=== PATIENT | male | born 1970 | race Caucasian/White ===

== ENCOUNTER 2022-12-22 11:03 | Day surgery (SDC) | payer OTHER ==
[2022-12-22] MEDS ORDERED: PROPOFOL 200 MG/20 ML VIAL ONE (13:15)
[2022-12-22] MEDS ORDERED: Ondansetron PF 4 MG/2 ML Vial ONE (13:15)
[2022-12-22] MEDS ORDERED: Dexamethasone 20 MG/5 ML VIAL ONE (13:15)
[2022-12-22] MEDS ORDERED: Lidocaine 1% PF 5 ML VIAL ONE (13:15)
== END 2022-12-25 15:10 | disposition home or self-care (01) ==
LOC: SJX 11:03 → EDSTATUS 01-05 12:00
PROVIDERS: ATTEND Nurse Practitioner Family
DX: M47.27 Other spondylosis with radiculopathy, lumbosacral region (principal); M48.061 Spinal stenosis, lumbar region without neurogenic claudication; Q76.49 Other congenital malformations of spine, not associated with scoliosis; M48.07 Spinal stenosis, lumbosacral region; M51.17 Intervertebral disc disorders with radiculopathy, lumbosacral region; M51.16 Intervertebral disc disorders with radiculopathy, lumbar region; I10 Essential (primary) hypertension; Z79.2 Long term (current) use of antibiotics; Z79.52 Long term (current) use of systemic steroids; Z79.621 Long term (current) use of calcineurin inhibitor; Z79.899 Other long term (current) drug therapy; Z94.0 Kidney transplant status
CPT/HCPCS: 72148; J1100; J2405; J2704

== ENCOUNTER → 2023-01-12 | Day surgery (SDC) | payer OTHER ==
[2023-01-11 12:35] VITALS: BMI 30.2
[~2023-01-12] MED LIST: Lidocaine 1% PF 5 ML VIAL ONE; PHENYLEPHRINE-NS 100 MCG/ML 10 ML SYRINGE ONE; PROPOFOL 200 MG/20 ML VIAL ONE
== END | disposition home or self-care (01) ==
LOC: EDSTATUS 13:00 → MRI 13:55
PROVIDERS: ATTEND Surgery
DX: Q06.8 Other specified congenital malformations of spinal cord (principal); M47.812 Spondylosis without myelopathy or radiculopathy, cervical region; M48.02 Spinal stenosis, cervical region; M50.31 Other cervical disc degeneration, high cervical region; Z79.52 Long term (current) use of systemic steroids; Z79.621 Long term (current) use of calcineurin inhibitor; Z79.899 Other long term (current) drug therapy; Z94.0 Kidney transplant status
CPT/HCPCS: 72141; 72146; J2704

== ENCOUNTER 2023-09-21 09:28 | Emergency (ER) | payer OTHER ==
[2023-09-21 10:53] LABS: #Eosinphils 0.1 thou/uL (0.0-0.7); #Monocytes 0.7 thou/uL (0.11-0.59); #Neutrophils 5.6 thou/uL (1.40-6.50); %Basophils 0.5 % (0.0-1.0); %Eosinophils 1.1 % (0.0-10.0); %Lymphocytes 18.7 % (21.0-51.0); %Monocytes 8.2 % (0.0-10.0); %Neutrophils 71.1 % (42.0-75.0); Hematocrit 43.6 % (42.0-52.0); Mean Corpuscular HGB CONC 34.4 g/dL (32.0-36.0); Mean Corpuscular Hemoglobin 31.3 pg (27.0-31.0); Mean Corpuscular Volume 90.8 fl (78.0-98.0); Mean Platelet Volume 10.5 fL (7.4-10.4); Platelet Count 253 10x3/uL (130-400); RBC Distribution Width 12.8 % (11.5-14.5); White Blood Cell (WBC) Count 7.9 10x3/uL (4.8-10.8)
[2023-09-21 11:27] LABS: ALT (SGPT) 34 U/L (8-55); AST (SGOT) 32 U/L (5-34); Albumin 4.4 g/dL (3.5-5.0); Alkaline Phosphatase 81 U/L (40-110); Anion Gap 15 mmol/L (10-20); BUN (Urea Nitrogen) 23 mg/dL (8.4-25.7); Bilirubin, Total 0.6 mg/dL (0.2-1.2); Calc. Creatinine Clearance 0 mL/min (70-130); Calcium 9.9 mg/dL (7.8-10.44); Carbon Dioxide 23 mmol/L (22-29); Chloride 104 mmol/L (98-107); Estimated GFR 91; Globulin 3.3 g/dL (2.4-3.5); Glucose 105 mg/dL (70-105); Potassium 3.9 mmol/L (3.5-5.1); Protein, Total 7.7 g/dL (6.0-8.3); Sodium 138 mmol/L (136-145)
== END 2023-09-21 14:00 | disposition home or self-care (01) ==
LOC: ERS 09:28
DX: G89.29 Other chronic pain (principal); M79.651 Pain in right thigh; R53.1 Weakness; Q05.9 Spina bifida, unspecified; I12.9 Hypertensive chronic kidney disease with stage 1 through stage 4 chronic kidney disease, or unspecified chronic kidney disease; N18.9 Chronic kidney disease, unspecified; K21.9 Gastro-esophageal reflux disease without esophagitis; Z79.899 Other long term (current) drug therapy
CPT/HCPCS: 36415; 80053; 85025; 99284

== ENCOUNTER 2023-10-25 10:55 | Inpatient (IN) | payer OTHER, SELFPAY ==
[2023-10-25 13:17] LABS: #Eosinphils 0.1 thou/uL (0.0-0.7); #Monocytes 0.8 thou/uL (0.11-0.59); #Neutrophils 10.2 thou/uL (1.40-6.50); %Basophils 0.3 % (0.0-1.0); %Eosinophils 0.7 % (0.0-10.0); %Lymphocytes 7.8 % (21.0-51.0); %Monocytes 6.4 % (0.0-10.0); %Neutrophils 84.5 % (42.0-75.0); Hematocrit 46.1 % (42.0-52.0); Hemoglobin 15.6 g/dL (14.0-18.0); Mean Corpuscular HGB CONC 33.8 g/dL (32.0-36.0); Mean Corpuscular Hemoglobin 30.2 pg (27.0-31.0); Mean Corpuscular Volume 89.2 fl (78.0-98.0); Mean Platelet Volume 9.7 fL (7.4-10.4); Platelet Count 375 10x3/uL (130-400); RBC Distribution Width 12.1 % (11.5-14.5); Red Blood Cell (RBC) Count 5.17 mill/uL (4.70-6.10); White Blood Cell (WBC) Count 12.1 10x3/uL (4.8-10.8)
[2023-10-25] MEDS ORDERED: LORazepam 2 MG/ML SYR.(CARPUJECT) ONE ×2 (13:36→14:16)
[2023-10-25 13:37] LABS: INR-International Normal Ratio 1.9; PTT 46.7 sec (22.9-36.1); Prothrombin Time 22.8 sec (12.0-14.7)
[2023-10-25 13:41] LABS: ALT (SGPT) 40 U/L (8-55); AST (SGOT) 33 U/L (5-34); Albumin 4.3 g/dL (3.5-5.0); Alkaline Phosphatase 117 U/L (40-110); Anion Gap 14 mmol/L (10-20); BUN (Urea Nitrogen) 20 mg/dL (8.4-25.7); Bilirubin, Total 1.1 mg/dL (0.2-1.2); CK (CPK) 228 U/L (30-200); Calc. Creatinine Clearance 0 mL/min (70-130); Calcium 10.2 mg/dL (7.8-10.44); Carbon Dioxide 24 mmol/L (22-29); Chloride 101 mmol/L (98-107); Estimated GFR 74; Glucose 128 mg/dL (70-105); Magnesium 1.7 mg/dL (1.6-2.6); Potassium 3.9 mmol/L (3.5-5.1); Protein, Total 8.3 g/dL (6.0-8.3); Sodium 135 mmol/L (136-145)
[2023-10-25] MEDS ORDERED: HYDROcodone/Acetaminophen 7.5/325 mg Tablet PO PRN (16:38)
[2023-10-25 17:46] VITALS: BMI 29.2
[2023-10-25] MEDS: Trospium 20 MG TAB PO SCH ×2 (21:01→23:02)
[2023-10-25] MEDS: Carvedilol 6.25 MG TAB PO SCH (21:01)
[2023-10-25] MEDS: Mycophenolate DR 180 MG TAB PO SCH (21:02)
[2023-10-25] MEDS: Tacrolimus 1 MG CAP PO SCH (21:02)
[2023-10-25] MEDS: traMADol HCl 50 MG TAB PO PRN (23:14)
[2023-10-25] MEDS: ALPRAZolam 0.25 MG TAB PO PRN (23:15)
[2023-10-26] MEDS: Tacrolimus 1 MG CAP PO SCH ×2 (09:14→20:58)
[2023-10-26] MEDS: Mycophenolate DR 180 MG TAB PO SCH ×3 (09:14→20:58)
[2023-10-26] MEDS: Carvedilol 6.25 MG TAB PO SCH ×2 (09:15→20:57)
[2023-10-26] MEDS: TROSPIUM 60 MG PO SCH (09:15)
[2023-10-26] MEDS: predniSONE 5 MG TAB PO SCH (09:15)
[2023-10-26] MEDS ORDERED: Midazolam HCl 2 mg/2 ml Vial ONE (12:12)
[2023-10-26] MEDS ORDERED: PROPOFOL 200 MG/20 ML VIAL ONE (12:20)
[2023-10-26] MEDS ORDERED: Lidocaine 1% PF 5 ML VIAL ONE (12:20)
[2023-10-26] MEDS: Rivaroxaban 15 MG TAB PO SCH (15:49)
[2023-10-26] MEDS ORDERED: Rivaroxaban 15 MG TAB PO SCH (17:00)
[2023-10-26] MEDS: ALPRAZolam 0.25 MG TAB PO PRN (21:04)
[2023-10-27] MEDS: Tacrolimus 1 MG CAP PO SCH ×2 (08:57→20:51)
[2023-10-27] MEDS: Mycophenolate DR 180 MG TAB PO SCH ×3 (08:58→20:51)
[2023-10-27] MEDS: Carvedilol 6.25 MG TAB PO SCH ×2 (08:58→20:51)
[2023-10-27] MEDS: TROSPIUM 60 MG PO SCH (08:58)
[2023-10-27] MEDS: predniSONE 5 MG TAB PO SCH (08:58)
[2023-10-27] MEDS: traMADol HCl 50 MG TAB PO PRN (09:02)
[2023-10-27] MEDS: Rivaroxaban 15 MG TAB PO SCH ×3 (09:06→16:08)
[2023-10-27] MEDS: ALPRAZolam 0.25 MG TAB PO PRN (23:06)
[2023-10-28] MEDS: Melatonin 3 MG TAB PO PRN ×2 (00:42→22:05)
[2023-10-28] MEDS: Tacrolimus 1 MG CAP PO SCH ×2 (07:42→20:00)
[2023-10-28] MEDS: Rivaroxaban 15 MG TAB PO SCH ×2 (07:43→16:37)
[2023-10-28] MEDS: Carvedilol 6.25 MG TAB PO SCH ×2 (07:43→20:00)
[2023-10-28] MEDS: predniSONE 5 MG TAB PO SCH (07:43)
[2023-10-28] MEDS: Mycophenolate DR 180 MG TAB PO SCH ×3 (07:43→20:00)
[2023-10-28] MEDS: TROSPIUM 60 MG PO SCH (07:44)
[2023-10-28] MEDS: ALPRAZolam 0.25 MG TAB PO PRN (14:01)
[2023-10-28] MEDS ORDERED: Calcium Carbonate 500 MG ChewTAB PO PRN (22:10)
[2023-10-29] MEDS: Carvedilol 6.25 MG TAB PO SCH ×2 (08:15→21:05)
[2023-10-29] MEDS: predniSONE 5 MG TAB PO SCH (08:15)
[2023-10-29] MEDS: Rivaroxaban 15 MG TAB PO SCH ×2 (08:16→17:05)
[2023-10-29] MEDS: Mycophenolate DR 180 MG TAB PO SCH ×3 (08:16→21:05)
[2023-10-29] MEDS: Tacrolimus 1 MG CAP PO SCH ×2 (08:16→21:05)
[2023-10-29] MEDS: TROSPIUM 60 MG PO SCH (08:20)
[2023-10-29] MEDS: Melatonin 3 MG TAB PO PRN (21:14)
[2023-10-30 06:10] LABS: #Eosinphils 0.1 thou/uL (0.0-0.7); #Monocytes 0.7 thou/uL (0.11-0.59); #Neutrophils 4.9 thou/uL (1.40-6.50); %Basophils 0.5 % (0.0-1.0); %Eosinophils 1.6 % (0.0-10.0); %Lymphocytes 22.9 % (21.0-51.0); %Monocytes 9.9 % (0.0-10.0); %Neutrophils 64.8 % (42.0-75.0); Hematocrit 42.8 % (42.0-52.0); Hemoglobin 14.5 g/dL (14.0-18.0); Mean Corpuscular HGB CONC 33.9 g/dL (32.0-36.0); Mean Corpuscular Hemoglobin 30.2 pg (27.0-31.0); Mean Corpuscular Volume 89.2 fl (78.0-98.0); Platelet Count 295 10x3/uL (130-400); RBC Distribution Width 11.9 % (11.5-14.5); White Blood Cell (WBC) Count 7.5 10x3/uL (4.8-10.8)
[2023-10-30 06:46] LABS: Anion Gap 17 mmol/L (10-20); BUN (Urea Nitrogen) 24 mg/dL (8.4-25.7); Calc. Creatinine Clearance 88 mL/min (70-130); Calcium 9.6 mg/dL (7.8-10.44); Carbon Dioxide 20 mmol/L (22-29); Chloride 105 mmol/L (98-107); Estimated GFR 70; Glucose 118 mg/dL (70-105); Potassium 4.1 mmol/L (3.5-5.1); Sodium 138 mmol/L (136-145)
[2023-10-30] MEDS: Tacrolimus 1 MG CAP PO SCH ×2 (07:59→20:15)
[2023-10-30] MEDS: Mycophenolate DR 180 MG TAB PO SCH ×3 (07:59→20:15)
[2023-10-30] MEDS: Carvedilol 6.25 MG TAB PO SCH ×2 (07:59→20:15)
[2023-10-30] MEDS: Rivaroxaban 15 MG TAB PO SCH ×2 (08:00→17:37)
[2023-10-30] MEDS: predniSONE 5 MG TAB PO SCH (08:00)
[2023-10-30] MEDS: TROSPIUM 60 MG PO SCH (08:00)
[2023-10-30] MEDS: Melatonin 3 MG TAB PO PRN (20:15)
[2023-10-30] MEDS: ALPRAZolam 0.25 MG TAB PO PRN (20:15)
[2023-10-31] MEDS: Carvedilol 6.25 MG TAB PO SCH (08:10)
[2023-10-31] MEDS: Rivaroxaban 15 MG TAB PO SCH (08:10)
[2023-10-31] MEDS: predniSONE 5 MG TAB PO SCH (08:10)
[2023-10-31] MEDS: Mycophenolate DR 180 MG TAB PO SCH (08:11)
[2023-10-31] MEDS: TROSPIUM 60 MG PO SCH (08:11)
[2023-10-31 08:38] VITALS: BP 121/85; TEMP 97.7
[2023-10-31] MEDS: Tacrolimus 1 MG CAP PO SCH (09:42)
[2023-11-05] MEDS ORDERED: Rivaroxaban 10 MG TAB PO SCH (17:00)
== END 2023-10-31 15:13 | disposition home or self-care (01) | DRG 300 ==
LOC: ERS 10:55 → T4-B 15:54 → OBSVTOIN 10-26 17:38
PROVIDERS: ADMIT Internal Medicine; ATTEND Family Medicine
DX: I82.402 Acute embolism and thrombosis of unspecified deep veins of left lower extremity (principal); Z94.0 Kidney transplant status; M79.89 Other specified soft tissue disorders; I10 Essential (primary) hypertension; R33.9 Retention of urine, unspecified; R29.898 Other symptoms and signs involving the musculoskeletal system; Z79.899 Other long term (current) drug therapy; Z79.01 Long term (current) use of anticoagulants
CPT/HCPCS: 36415; 70450; 72157; 72158; 80048; 80053; 82550; 83735; 85025; 85610; 85730; 93970; 96374; 96376; J2060; J2250; J2704; J7507; J7512; J7518

== ENCOUNTER 2023-12-28 10:02 | Inpatient (IN) | payer BC ==
[2023-12-28 11:09] LABS: #Basophils 0.1 thou/uL (0.0-0.2); #Eosinphils 0.1 thou/uL (0.0-0.7); #Monocytes 0.8 thou/uL (0.11-0.59); #Neutrophils 8.8 thou/uL (1.40-6.50); %Basophils 0.5 % (0.0-1.0); %Eosinophils 1.3 % (0.0-10.0); %Lymphocytes 9.5 % (21.0-51.0); %Monocytes 7.5 % (0.0-10.0); %Neutrophils 80.8 % (42.0-75.0); Hematocrit 43.2 % (42.0-52.0); Hemoglobin 14.5 g/dL (14.0-18.0); Mean Corpuscular HGB CONC 33.6 g/dL (32.0-36.0); Mean Corpuscular Hemoglobin 29.2 pg (27.0-31.0); Mean Corpuscular Volume 87.1 fl (78.0-98.0); Mean Platelet Volume 10.2 fL (7.4-10.4); Platelet Count 311 10x3/uL (130-400); Red Blood Cell (RBC) Count 4.96 mill/uL (4.70-6.10); White Blood Cell (WBC) Count 10.9 10x3/uL (4.8-10.8)
[2023-12-28 11:31] LABS: ALT (SGPT) 33 U/L (8-55); AST (SGOT) 31 U/L (5-34); Albumin 4.3 g/dL (3.5-5.0); Alkaline Phosphatase 117 U/L (40-110); Anion Gap 14 mmol/L (10-20); BUN (Urea Nitrogen) 21 mg/dL (8.4-25.7); Bilirubin, Total 1.2 mg/dL (0.2-1.2); Calc. Creatinine Clearance 0 mL/min (70-130); Calcium 10.1 mg/dL (7.8-10.44); Carbon Dioxide 23 mmol/L (22-29); Chloride 103 mmol/L (98-107); Estimated GFR 52; Globulin 4.1 g/dL (2.4-3.5); Glucose 101 mg/dL (70-105); Protein, Total 8.4 g/dL (6.0-8.3); Sodium 136 mmol/L (136-145)
[2023-12-28 11:41] LABS: Clarity Cloudy (Clear); Specific Gravity, Urine 1.025 (1.005-1.030); pH, Urine 6.5 (5.0-9.0)
[2023-12-28 11:42] LABS: Bilirubin Unable to Interpret (Negative); Blood, Urine Unable to Interpret (Negative); Glucose, Urine (Dipstick) Unable to Interpret mg/dL (Negative); Ketone, Urine Unable to Interpret mg/dL (Negative); Leukocyte Unable to Interpret (Negative); Nitrite Unable to Interpret (Negative); Protein, Urine (Dipstick) Unable to Interpret mg/dL (Neg-Trace); Urobilinogen UNABLE TO INTERPRET mg/dL (Less than 2)
[2023-12-28 11:44] LABS: Bacteria/HPF 2+ HPF (None Seen); CAUTI Indications for Culture Pelvic or flank pain; RBC/HPF Greater than 50 HPF (0-3); Squamous Epithelial None Seen HPF (0-3); Transitional Epithelial 0-3 HPF (None Seen)
[2023-12-28 11:45] LABS: Urine Culture Reflex Yes Yes
[2023-12-28] MEDS ORDERED: Sodium Chloride 0.9% 100 ML ONE (12:26)
[2023-12-28] MEDS ORDERED: cefTRIAXone (ROCEPHIN) 2 GM VIAL ONE (12:26)
[2023-12-28] MEDS ORDERED: Ondansetron PF 4 MG/2 ML Vial IVP PRN (13:05)
[2023-12-28] MEDS ORDERED: Vancomycin (BATCH) 2 GM in Premix 1 BAG IVPB SCH (14:15)
[2023-12-28] MEDS: Sodium Chloride 0.9% 1,000 ML IV SCH (15:32)
[2023-12-28 15:46] VITALS: BMI 26.6
[2023-12-28] MEDS: Acetaminophen 325 MG TAB PO PRN (22:39)
[2023-12-29] MEDS: Sodium Chloride 0.9% 1,000 ML IV SCH ×3 (00:04→18:07)
[2023-12-29] MEDS: Melatonin 3 MG TAB PO PRN ×2 (02:46→21:16)
[2023-12-29] MEDS ORDERED: Cyclobenzaprine 10 MG TAB PO SCH ×2 (04:45→20:30)
[2023-12-29 06:25] LABS: #Basophils 0.1 thou/uL (0.0-0.2); #Eosinphils 0.1 thou/uL (0.0-0.7); #Monocytes 0.9 thou/uL (0.11-0.59); #Neutrophils 7.2 thou/uL (1.40-6.50); %Basophils 0.6 % (0.0-1.0); %Eosinophils 1.3 % (0.0-10.0); %Lymphocytes 10.4 % (21.0-51.0); %Neutrophils 77.4 % (42.0-75.0); Hematocrit 39.2 % (42.0-52.0); Mean Corpuscular HGB CONC 33.2 g/dL (32.0-36.0); Mean Corpuscular Hemoglobin 29.1 pg (27.0-31.0); Mean Corpuscular Volume 87.7 fl (78.0-98.0); Mean Platelet Volume 10.2 fL (7.4-10.4); Platelet Count 274 10x3/uL (130-400); RBC Distribution Width 12.9 % (11.5-14.5); Red Blood Cell (RBC) Count 4.47 mill/uL (4.70-6.10); White Blood Cell (WBC) Count 9.3 10x3/uL (4.8-10.8)
[2023-12-29] MEDS: Tacrolimus 1 MG CAP PO SCH ×2 (08:52→21:13)
[2023-12-29] MEDS: predniSONE 5 MG TAB PO SCH (08:52)
[2023-12-29] MEDS: Mycophenolate DR 180 MG TAB PO SCH ×2 (08:52→21:14)
[2023-12-29] MEDS ORDERED: Loperamide HCl 2 MG CAP PO PRN (12:07)
[2023-12-29] MEDS ORDERED: Floranex 1 GM Packet PO SCH (12:15)
[2023-12-29] MEDS: cefTRIAXone\\ROCEPHIN 1 GM in Sodium Chloride 0.9% 100 ML IVPB SCH (12:50)
[2023-12-29] MEDS: Acetaminophen 325 MG TAB PO PRN (21:16)
[2023-12-30] MEDS: Acetaminophen 325 MG TAB PO PRN (02:00)
[2023-12-30 05:51] LABS: #Basophils 0.1 thou/uL (0.0-0.2); #Eosinphils 0.2 thou/uL (0.0-0.7); #Monocytes 0.7 thou/uL (0.11-0.59); #Neutrophils 3.6 thou/uL (1.40-6.50); %Basophils 0.8 % (0.0-1.0); %Eosinophils 2.7 % (0.0-10.0); %Monocytes 11.6 % (0.0-10.0); %Neutrophils 58.4 % (42.0-75.0); Hematocrit 38.2 % (42.0-52.0); Hemoglobin 12.6 g/dL (14.0-18.0); Mean Corpuscular Hemoglobin 29.5 pg (27.0-31.0); Mean Corpuscular Volume 89.5 fl (78.0-98.0); Mean Platelet Volume 10.4 fL (7.4-10.4); Platelet Count 249 10x3/uL (130-400); Red Blood Cell (RBC) Count 4.27 mill/uL (4.70-6.10); White Blood Cell (WBC) Count 6.2 10x3/uL (4.8-10.8)
[2023-12-30 06:23] LABS: Anion Gap 9 mmol/L (10-20); BUN (Urea Nitrogen) 17 mg/dL (8.4-25.7); Calc. Creatinine Clearance 90 mL/min (70-130); Carbon Dioxide 24 mmol/L (22-29); Chloride 109 mmol/L (98-107); Estimated GFR 80; Glucose 109 mg/dL (70-105); Potassium 3.7 mmol/L (3.5-5.1); Sodium 138 mmol/L (136-145)
[2023-12-30] MEDS: Sodium Chloride 0.9% 1,000 ML IV SCH (06:27)
[2023-12-30] MEDS: Tacrolimus 1 MG CAP PO SCH (07:57)
[2023-12-30] MEDS: predniSONE 5 MG TAB PO SCH (07:58)
[2023-12-30] MEDS: Mycophenolate DR 180 MG TAB PO SCH (07:58)
[2023-12-30] MEDS ORDERED: Floranex 1 GM Packet PO SCH (09:00)
[2023-12-30] MEDS: cefTRIAXone\\ROCEPHIN 1 GM in Sodium Chloride 0.9% 100 ML IVPB SCH ×2 (12:16→12:18)
[2023-12-30 14:06] VITALS: BP 142/95; TEMP 97.9
== END 2023-12-30 14:11 | disposition home or self-care (01) | DRG 690 ==
LOC: ERS 10:02 → ERHOLD 12:53 → T4-A 14:26
PROVIDERS: ADMIT Internal Medicine; ATTEND Internal Medicine
DX: N39.0 Urinary tract infection, site not specified (principal); D84.821 Immunodeficiency due to drugs; Z94.0 Kidney transplant status; R31.0 Gross hematuria; N31.9 Neuromuscular dysfunction of bladder, unspecified; R53.81 Other malaise; Z79.899 Other long term (current) drug therapy; Z98.890 Other specified postprocedural states; Z79.01 Long term (current) use of anticoagulants
CPT/HCPCS: 36415; 51701; 80048; 80053; 81001; 85025; 87077; 87086; 87186; 96365; J0696; J3370; J3490; J7050; J7507; J7512; J7518

== ENCOUNTER 2024-01-04 12:35 | Observation (INO) | payer BC ==
[~2024-01-04 12:35] MED LIST changes: +Iopamidol-370 76% 500 ML MDV (1 ML CHARGE) ONE; -Lidocaine 1% PF 5 ML VIAL ONE; -PHENYLEPHRINE-NS 100 MCG/ML 10 ML SYRINGE ONE; -PROPOFOL 200 MG/20 ML VIAL ONE
[2024-01-04 13:05] LABS: #Basophils 0.1 thou/uL (0.0-0.2); #Eosinphils 0.1 thou/uL (0.0-0.7); #Neutrophils 13.6 thou/uL (1.40-6.50); %Basophils 0.5 % (0.0-1.0); %Eosinophils 0.6 % (0.0-10.0); %Lymphocytes 8.5 % (21.0-51.0); %Monocytes 5.9 % (0.0-10.0); %Neutrophils 84.1 % (42.0-75.0); Hematocrit 44.8 % (42.0-52.0); Hemoglobin 15.2 g/dL (14.0-18.0); Mean Corpuscular HGB CONC 33.9 g/dL (32.0-36.0); Mean Corpuscular Hemoglobin 29.1 pg (27.0-31.0); Mean Corpuscular Volume 85.8 fl (78.0-98.0); Mean Platelet Volume 9.9 fL (7.4-10.4); Platelet Count 354 10x3/uL (130-400); RBC Distribution Width 12.9 % (11.5-14.5); Red Blood Cell (RBC) Count 5.22 mill/uL (4.70-6.10); White Blood Cell (WBC) Count 16.2 10x3/uL (4.8-10.8)
[2024-01-04 13:42] LABS: ALT (SGPT) 23 U/L (8-55); AST (SGOT) 23 U/L (5-34); Albumin 4.2 g/dL (3.5-5.0); Alkaline Phosphatase 81 U/L (40-110); Anion Gap 16 mmol/L (10-20); BUN (Urea Nitrogen) 19 mg/dL (8.4-25.7); Calc. Creatinine Clearance 0 mL/min (70-130); Carbon Dioxide 20 mmol/L (22-29); Chloride 103 mmol/L (98-107); Estimated GFR 82; Globulin 3.8 g/dL (2.4-3.5); Glucose 169 mg/dL (70-105); Lipase 32 U/L (8-78); Magnesium 1.4 mg/dL (1.6-2.6); Potassium 4.3 mmol/L (3.5-5.1); Sodium 135 mmol/L (136-145)
[2024-01-04] MEDS ORDERED: Morphine 4 MG/ML VIAL ONE (13:45)
[2024-01-04] MEDS ORDERED: cefTRIAXone (ROCEPHIN) 1 GM VIAL ONE (13:45)
[2024-01-04] MEDS ORDERED: Ondansetron PF 4 MG/2 ML Vial ONE (13:45)
[2024-01-04] MEDS ORDERED: diphenhydrAMINE 50 MG/ML VIAL ONE (13:53)
[2024-01-04] MEDS ORDERED: Magnesium 2 GM/50 ML BAG (IN WATER) ONE (14:06)
[2024-01-04] MEDS ORDERED: HYDROmorphone 0.5 MG/0.5 ML SYRINGE ONE (14:32)
[2024-01-04 16:33] LABS: Bilirubin Negative (Negative); Blood, Urine 1+ (Negative); CAUTI Indications for Culture Pelvic or flank pain; Glucose, Urine (Dipstick) 50 mg/dL (Negative); Ketone, Urine Negative (Negative); Leukocyte 500 Leu/uL (Negative); Nitrite Negative (Negative); Protein, Urine (Dipstick) 200 mg/dL (Neg-Trace); Specific Gravity, Urine 1.018 (1.002-1.036); Squamous Epithelial None Seen HPF (0-3); Urobilinogen Normal mg/dL (Less than 2); WBC/HPF Greater than 50 HPF (0-3); pH, Urine 7.5 (5.0-9.0)
[2024-01-04 16:34] LABS: Bacteria/HPF 1+ HPF (None Seen); Clarity Hazy (Clear)
[2024-01-04 16:40] LABS: Urine Culture Reflex Yes Yes
[2024-01-04] MEDS ORDERED: ALPRAZolam 0.25 MG TAB PO PRN (18:21)
[2024-01-04] MEDS ORDERED: Ondansetron ODT 4 MG TAB PO PRN (18:22)
[2024-01-04] MEDS ORDERED: Ondansetron PF 4 MG/2 ML Vial IVP PRN (18:22)
[2024-01-04] MEDS ORDERED: Acetaminophen 650 MG Suppository PR PRN (18:22)
[2024-01-04] MEDS ORDERED: Morphine 2 MG/ML VIAL SLOW IVP PRN (18:24)
[2024-01-04] MEDS: Cefepime 1 GM in Sodium Chloride 0.9% 100 ML IVPB SCH (21:52)
[2024-01-04] MEDS: Mycophenolate DR 180 MG TAB PO SCH (21:53)
[2024-01-04] MEDS: Tacrolimus 1 MG CAP PO SCH (21:53)
[2024-01-04] MEDS: Carvedilol 6.25 MG TAB PO SCH (21:53)
[2024-01-04] MEDS: Trospium 20 MG TAB PO SCH (21:53)
[2024-01-04] MEDS: Acetaminophen 325 MG TAB PO PRN (22:05)
[2024-01-04 22:24] VITALS: BMI 28.5
[2024-01-04] MEDS ORDERED: hydrOXYzine 25 MG TAB PO PRN (22:56)
[2024-01-05] MEDS: predniSONE 5 MG TAB PO SCH (08:58)
[2024-01-05] MEDS: Cyclobenzaprine 10 MG TAB PO SCH (08:58)
[2024-01-05 09:08] VITALS: BP 120/73
[2024-01-05 11:56] VITALS: TEMP 98
[2024-01-05 14:48] LABS: Anion Gap 12 mmol/L (10-20); BUN (Urea Nitrogen) 16 mg/dL (8.4-25.7); Calc. Creatinine Clearance 91 mL/min (70-130); Calcium 9.3 mg/dL (7.8-10.44); Carbon Dioxide 26 mmol/L (22-29); Chloride 103 mmol/L (98-107); Estimated GFR 75; Glucose 151 mg/dL (70-105); Sodium 136 mmol/L (136-145)
[2024-01-05] MEDS ORDERED: Cefepime 2 GM in Sodium Chloride 0.9% 100 ML IVPB SCH (20:00)
== END 2024-01-05 16:45 | disposition home or self-care (01) ==
LOC: ERS 12:35 → MSONC 17:35
PROVIDERS: ADMIT Internal Medicine; ATTEND Family Medicine
DX: N39.0 Urinary tract infection, site not specified (principal); N12 Tubulo-interstitial nephritis, not specified as acute or chronic; I12.0 Hypertensive chronic kidney disease with stage 5 chronic kidney disease or end stage renal disease; N18.6 End stage renal disease; K21.9 Gastro-esophageal reflux disease without esophagitis; Z94.0 Kidney transplant status; Z86.718 Personal history of other venous thrombosis and embolism; Z79.899 Other long term (current) drug therapy
CPT/HCPCS: 36415; 36416; 74177; 80048; 80053; 81001; 83690; 83735; 85025; 87040; 87077; 87086; 87186; 96375; 96376; G0378; J0692; J0696; J1170; J1200; J2270; J2405; J3475; J3490; J7507; J7512; J7518; Q9967

== ENCOUNTER 2024-01-12 21:59 | Emergency (ER) | payer BC ==
[2024-01-12] MEDS ORDERED: Dicyclomine 20 MG/2 ML VIAL ONE (22:33)
[2024-01-12] MEDS ORDERED: Promethazine HCl 25 MG in Sodium Chloride 0.9% 50 ML IVPB SCH (22:45)
[2024-01-12 22:54] LABS: #Basophils 0.1 thou/uL (0.0-0.2); #Eosinphils 0.1 thou/uL (0.0-0.7); #Monocytes 0.9 thou/uL (0.11-0.59); #Neutrophils 10.4 thou/uL (1.40-6.50); %Basophils 0.4 % (0.0-1.0); %Eosinophils 0.5 % (0.0-10.0); %Lymphocytes 16.1 % (21.0-51.0); %Monocytes 6.6 % (0.0-10.0); Hematocrit 47.4 % (42.0-52.0); Hemoglobin 16.1 g/dL (14.0-18.0); Mean Corpuscular Hemoglobin 29.4 pg (27.0-31.0); Mean Corpuscular Volume 86.5 fl (78.0-98.0); Mean Platelet Volume 10.2 fL (7.4-10.4); Platelet Count 360 10x3/uL (130-400); RBC Distribution Width 13.2 % (11.5-14.5); Red Blood Cell (RBC) Count 5.48 mill/uL (4.70-6.10); White Blood Cell (WBC) Count 13.7 10x3/uL (4.8-10.8)
[2024-01-12] MEDS ORDERED: HYDROmorphone 0.5 MG/0.5 ML SYRINGE ONE (23:18)
[2024-01-12] MEDS ORDERED: Ondansetron PF 4 MG/2 ML Vial ONE (23:18)
[2024-01-12 23:27] LABS: ALT (SGPT) 32 U/L (8-55); AST (SGOT) 32 U/L (5-34); Albumin 4.6 g/dL (3.5-5.0); Alkaline Phosphatase 86 U/L (40-110); Anion Gap 17 mmol/L (10-20); BUN (Urea Nitrogen) 17 mg/dL (8.4-25.7); Bilirubin, Total 0.9 mg/dL (0.2-1.2); Calc. Creatinine Clearance 0 mL/min (70-130); Calcium 10.6 mg/dL (7.8-10.44); Carbon Dioxide 24 mmol/L (22-29); Chloride 99 mmol/L (98-107); Estimated GFR 76; Globulin 4.4 g/dL (2.4-3.5); Glucose 117 mg/dL (70-105); Lipase 32 U/L (8-78); Potassium 4.2 mmol/L (3.5-5.1); Sodium 136 mmol/L (136-145)
[2024-01-13 01:15] LABS: Bacteria/HPF None Seen HPF (None Seen); Bilirubin Negative (Negative); Blood, Urine Negative (Negative); CAUTI Indications for Culture Pelvic or flank pain; Clarity Clear (Clear); Glucose, Urine (Dipstick) Normal (Negative); Ketone, Urine Negative (Negative); Leukocyte Negative Leu/uL (Negative); Nitrite Negative (Negative); Protein, Urine (Dipstick) 70 mg/dL (Neg-Trace); RBC/HPF 0-3 HPF (0-3); Specific Gravity, Urine 1.012 (1.002-1.036); Squamous Epithelial 0-3 HPF (0-3); Urobilinogen Normal mg/dL (Less than 2); WBC/HPF 0-3 HPF (0-3)
[2024-01-13 01:20] LABS: Urine Culture Reflex No No
== END 2024-01-13 04:40 | disposition home or self-care (01) ==
LOC: ERS 21:59
DX: R10.9 Unspecified abdominal pain (principal); I10 Essential (primary) hypertension; K21.9 Gastro-esophageal reflux disease without esophagitis; M48.00 Spinal stenosis, site unspecified; N28.9 Disorder of kidney and ureter, unspecified; Z55.6 Problems related to health literacy; Z79.899 Other long term (current) drug therapy
CPT/HCPCS: 36415; 74177; 80053; 81001; 83605; 83690; 85025; 87040; 87086; 93005; 96365; 96372; 96375; J1170; J2405; J2550; Q9967

== ENCOUNTER 2024-05-16 17:01 | Inpatient (IN) | payer BC ==
[2024-05-16 17:24] LABS: #Basophils 0.03 10x3/uL (0.0-0.2); %Basophils 0.2 % (0.0-1.0); %Eosinophils 0.2 % (0.0-10.0); %Lymphocytes 8.5 % (21.0-51.0); %Monocytes 4.3 % (0.0-10.0); %Neutrophils 86.4 % (42.0-75.0); Hematocrit 45.7 % (42.0-52.0); Hemoglobin 15.4 g/dL (14.0-18.0); Mean Corpuscular HGB CONC 33.7 g/dL (32.0-36.0); Mean Corpuscular Hemoglobin 29.5 pg (27.0-31.0); Mean Corpuscular Volume 87.5 fL (78.0-98.0); Mean Platelet Volume 9.5 fL (7.4-10.4); Platelet Count 308 10x3/uL (130-400); RBC Distribution Width 12.7 % (11.5-14.5); Red Blood Cell (RBC) Count 5.22 mill/uL (4.70-6.10)
[2024-05-16 17:37] LABS: ALT (SGPT) 38 U/L (8-55); AST (SGOT) 36 U/L (5-34); Albumin 4.1 g/dL (3.5-5.0); Alkaline Phosphatase 116 U/L (40-110); Anion Gap 17 mmol/L (10-20); BUN (Urea Nitrogen) 26 mg/dL (8.4-25.7); Bilirubin, Total 0.8 mg/dL (0.2-1.2); Calc. Creatinine Clearance 0 mL/min (70-130); Calcium 10.4 mg/dL (7.8-10.44); Carbon Dioxide 21 mmol/L (22-29); Chloride 102 mmol/L (98-107); Estimated GFR 91; Globulin 4.3 g/dL (2.4-3.5); Glucose 117 mg/dL (70-105); Potassium 4.5 mmol/L (3.5-5.1); Protein, Total 8.4 g/dL (6.0-8.3); Sodium 135 mmol/L (136-145)
[2024-05-16] MEDS ORDERED: LORazepam 2 MG/ML SYR.(CARPUJECT) ONE (17:55)
[2024-05-16 18:55] LABS: Troponin I Less than 0.010 ng/mL (< 0.028)
[2024-05-16 20:46] LABS: Bilirubin Negative (Negative); Blood, Urine Negative (Negative); CAUTI Indications for Culture Pelvic or flank pain; Clarity Clear (Clear); Glucose, Urine (Dipstick) Normal (Negative); Ketone, Urine Negative (Negative); Leukocyte 500 Leu/uL (Negative); Nitrite Negative (Negative); Protein, Urine (Dipstick) Negative (Neg-Trace); Specific Gravity, Urine 1.014 (1.002-1.036); Squamous Epithelial 0-3 HPF (0-3); Urobilinogen Normal mg/dL (Less than 2); WBC/HPF Greater than 50 HPF (0-3); pH, Urine 6.5 (5.0-9.0)
[2024-05-16 20:48] LABS: Bacteria/HPF 1+ HPF (None Seen)
[2024-05-16 20:49] LABS: Urine Culture Reflex Yes Yes
[2024-05-16] MEDS ORDERED: Enoxaparin 100 MG (1 mL) SYRINGE ONE (22:16)
[2024-05-16] MEDS ORDERED: cefTRIAXone (ROCEPHIN) 2 GM VIAL ONE (22:16)
[2024-05-17 00:36] VITALS: BMI 27.3
[2024-05-17 05:54] LABS: #Basophils 0.04 10x3/uL (0.0-0.2); %Basophils 0.4 % (0.0-1.0); %Eosinophils 1.2 % (0.0-10.0); %Lymphocytes 14.8 % (21.0-51.0); %Monocytes 8.8 % (0.0-10.0); %Neutrophils 74.3 % (42.0-75.0); Hematocrit 41.7 % (42.0-52.0); Hemoglobin 13.7 g/dL (14.0-18.0); Mean Corpuscular HGB CONC 32.9 g/dL (32.0-36.0); Mean Corpuscular Hemoglobin 29.5 pg (27.0-31.0); Mean Corpuscular Volume 89.7 fL (78.0-98.0); Platelet Count 260 10x3/uL (130-400); RBC Distribution Width 12.9 % (11.5-14.5); Red Blood Cell (RBC) Count 4.65 mill/uL (4.70-6.10)
[2024-05-17 06:19] LABS: Anion Gap 13 mmol/L (10-20); BUN (Urea Nitrogen) 21 mg/dL (8.4-25.7); Calc. Creatinine Clearance 121 mL/min (70-130); Calcium 9.5 mg/dL (7.8-10.44); Carbon Dioxide 25 mmol/L (22-29); Chloride 104 mmol/L (98-107); Estimated GFR 104; Glucose 126 mg/dL (70-105); Potassium 3.9 mmol/L (3.5-5.1); Sodium 138 mmol/L (136-145)
[2024-05-17] MEDS: Trospium 20 MG TAB PO SCH (08:16)
[2024-05-17] MEDS: predniSONE 5 MG TAB PO SCH (08:16)
[2024-05-17] MEDS: Pantoprazole DR 40 MG TAB PO SCH (08:16)
[2024-05-17] MEDS: Carvedilol 6.25 MG TAB PO SCH (08:17)
[2024-05-17] MEDS: Mycophenolate DR 180 MG TAB PO SCH (08:17)
[2024-05-17] MEDS: Tacrolimus 1 MG CAP PO SCH (08:17)
[2024-05-17] MEDS: Enoxaparin 80 MG (0.8 mL) SYRINGE SC SCH (08:17)
[2024-05-17] MEDS ORDERED: Mineral Oil ENEMA PR SCH (09:00)
[2024-05-17] MEDS: Fleet Saline Enema 133 ML BOT PR SCH (09:07)
[2024-05-17] MEDS: hydrOXYzine 25 MG TAB PO PRN (19:08)
[2024-05-17] MEDS: Apixaban 5 MG TAB PO SCH (20:38)
[2024-05-17] MEDS ORDERED: Apixaban 5 MG TAB PO SCH (21:00)
[2024-05-17] MEDS: traMADol HCl 50 MG TAB PO PRN (21:39)
[2024-05-17] MEDS: Acetaminophen 325 MG TAB PO PRN (23:20)
[2024-05-17] MEDS: cefTRIAXone\\ROCEPHIN 2 GM in Sodium Chloride 0.9% 100 ML IVPB SCH (23:21)
[2024-05-18 13:53] LABS: #Basophils 0.05 10x3/uL (0.0-0.2); %Basophils 0.6 % (0.0-1.0); %Eosinophils 1.6 % (0.0-10.0); %Lymphocytes 8.3 % (21.0-51.0); %Monocytes 7.5 % (0.0-10.0); %Neutrophils 81.7 % (42.0-75.0); Hematocrit 43.3 % (42.0-52.0); Hemoglobin 14.6 g/dL (14.0-18.0); Mean Corpuscular HGB CONC 33.7 g/dL (32.0-36.0); Mean Corpuscular Hemoglobin 28.9 pg (27.0-31.0); Mean Corpuscular Volume 85.7 fL (78.0-98.0); Platelet Count 272 10x3/uL (130-400); RBC Distribution Width 12.9 % (11.5-14.5); Red Blood Cell (RBC) Count 5.05 mill/uL (4.70-6.10)
[2024-05-18 14:08] LABS: Anion Gap 14 mmol/L (10-20); BUN (Urea Nitrogen) 18 mg/dL (8.4-25.7); Calc. Creatinine Clearance 127 mL/min (70-130); Calcium 9.9 mg/dL (7.8-10.44); Carbon Dioxide 22 mmol/L (22-29); Chloride 106 mmol/L (98-107); Estimated GFR 106; Glucose 142 mg/dL (70-105); Potassium 3.9 mmol/L (3.5-5.1); Sodium 138 mmol/L (136-145)
[2024-05-18] MEDS: Lorazepam 2 MG/ML VIAL SLOW IVP SCH (20:02)
[2024-05-19 06:58] LABS: #Basophils 0.04 10x3/uL (0.0-0.2); %Basophils 0.5 % (0.0-1.0); %Eosinophils 1.9 % (0.0-10.0); %Lymphocytes 20.3 % (21.0-51.0); %Monocytes 9.6 % (0.0-10.0); %Neutrophils 67.3 % (42.0-75.0); Hematocrit 43.8 % (42.0-52.0); Hemoglobin 14.6 g/dL (14.0-18.0); Mean Corpuscular HGB CONC 33.3 g/dL (32.0-36.0); Mean Corpuscular Hemoglobin 29.6 pg (27.0-31.0); Mean Corpuscular Volume 88.8 fL (78.0-98.0); Mean Platelet Volume 9.9 fL (7.4-10.4); Platelet Count 253 10x3/uL (130-400); RBC Distribution Width 12.8 % (11.5-14.5); Red Blood Cell (RBC) Count 4.93 mill/uL (4.70-6.10)
[2024-05-19 07:32] LABS: Anion Gap 16 mmol/L (10-20); BUN (Urea Nitrogen) 20 mg/dL (8.4-25.7); Calc. Creatinine Clearance 117 mL/min (70-130); Calcium 9.9 mg/dL (7.8-10.44); Carbon Dioxide 22 mmol/L (22-29); Chloride 104 mmol/L (98-107); Estimated GFR 103; Glucose 107 mg/dL (70-105); Potassium 4.2 mmol/L (3.5-5.1); Sodium 138 mmol/L (136-145)
[2024-05-19] MEDS: Vancomycin (BATCH) 1.25 GM in Premix 1 BAG IVPB SCH ×2 (12:17→23:40)
[2024-05-19] MEDS ORDERED: Midazolam HCl 2 mg/2 ml Vial ONE (15:34)
[2024-05-19] MEDS: Ondansetron PF 4 MG/2 ML Vial IVP PRN (18:10)
[2024-05-19] MEDS: Polyvinyl Alcohol 1.4%/Povidone 0.6% Opth Drops EA EYE SCH ×2 (20:09→20:10)
[2024-05-20 05:39] LABS: #Basophils 0.08 10x3/uL (0.0-0.2); %Basophils 0.8 % (0.0-1.0); %Eosinophils 1.2 % (0.0-10.0); %Lymphocytes 17.4 % (21.0-51.0); %Monocytes 9.4 % (0.0-10.0); %Neutrophils 70.8 % (42.0-75.0); Hematocrit 43.5 % (42.0-52.0); Hemoglobin 14.4 g/dL (14.0-18.0); Mean Corpuscular HGB CONC 33.1 g/dL (32.0-36.0); Mean Corpuscular Hemoglobin 28.9 pg (27.0-31.0); Mean Corpuscular Volume 87.2 fL (78.0-98.0); Mean Platelet Volume 10.4 fL (7.4-10.4); Platelet Count 291 10x3/uL (130-400); RBC Distribution Width 12.9 % (11.5-14.5); Red Blood Cell (RBC) Count 4.99 mill/uL (4.70-6.10)
[2024-05-20 05:44] LABS: Anion Gap 18 mmol/L (10-20); BUN (Urea Nitrogen) 20 mg/dL (8.4-25.7); Calc. Creatinine Clearance 106 mL/min (70-130); Calcium 9.6 mg/dL (7.8-10.44); Carbon Dioxide 22 mmol/L (22-29); Chloride 105 mmol/L (98-107); Estimated GFR 95; Glucose 120 mg/dL (70-105); Potassium 4.5 mmol/L (3.5-5.1); Sodium 140 mmol/L (136-145); Vancomycin, Random 29.2 ug/mL (See Comment)
[2024-05-20] MEDS: Vancomycin HCl 750 MG in Sodium Chloride 0.9% 250 ML 250 ML IVPB SCH (13:09)
[2024-05-20] MEDS: Floranex 1 GM Packet PO SCH (13:12)
[2024-05-21 05:50] LABS: #Basophils 0.05 10x3/uL (0.0-0.2); %Basophils 0.7 % (0.0-1.0); %Eosinophils 2.4 % (0.0-10.0); %Lymphocytes 26.9 % (21.0-51.0); %Monocytes 10.4 % (0.0-10.0); %Neutrophils 59.5 % (42.0-75.0); Hematocrit 41.5 % (42.0-52.0); Hemoglobin 13.5 g/dL (14.0-18.0); Mean Corpuscular HGB CONC 32.5 g/dL (32.0-36.0); Mean Corpuscular Hemoglobin 29.2 pg (27.0-31.0); Mean Corpuscular Volume 89.6 fL (78.0-98.0); Platelet Count 243 10x3/uL (130-400); RBC Distribution Width 12.9 % (11.5-14.5); Red Blood Cell (RBC) Count 4.63 mill/uL (4.70-6.10)
[2024-05-21 06:27] LABS: Anion Gap 13 mmol/L (10-20); BUN (Urea Nitrogen) 20 mg/dL (8.4-25.7); Calc. Creatinine Clearance 120 mL/min (70-130); Calcium 9.2 mg/dL (7.8-10.44); Carbon Dioxide 20 mmol/L (22-29); Chloride 110 mmol/L (98-107); Estimated GFR 104; Glucose 109 mg/dL (70-105); Potassium 3.9 mmol/L (3.5-5.1); Sodium 139 mmol/L (136-145)
[2024-05-22 05:40] LABS: #Basophils 0.05 10x3/uL (0.0-0.2); %Basophils 0.8 % (0.0-1.0); %Eosinophils 2.5 % (0.0-10.0); %Lymphocytes 25.1 % (21.0-51.0); %Monocytes 8.3 % (0.0-10.0); %Neutrophils 63.1 % (42.0-75.0); Hematocrit 41.5 % (42.0-52.0); Hemoglobin 13.3 g/dL (14.0-18.0); Mean Corpuscular Hemoglobin 28.9 pg (27.0-31.0); Mean Platelet Volume 10.1 fL (7.4-10.4); Platelet Count 229 10x3/uL (130-400); RBC Distribution Width 12.8 % (11.5-14.5); Red Blood Cell (RBC) Count 4.61 mill/uL (4.70-6.10)
[2024-05-22 05:59] LABS: Anion Gap 13 mmol/L (10-20); BUN (Urea Nitrogen) 18 mg/dL (8.4-25.7); Calc. Creatinine Clearance 113 mL/min (70-130); Calcium 9.3 mg/dL (7.8-10.44); Carbon Dioxide 19 mmol/L (22-29); Chloride 108 mmol/L (98-107); Estimated GFR 102; Glucose 119 mg/dL (70-105); Potassium 3.9 mmol/L (3.5-5.1); Sodium 136 mmol/L (136-145); Vancomycin, Random 27.9 ug/mL (See Comment)
[2024-05-23 07:07] LABS: Anion Gap 13 mmol/L (10-20); BUN (Urea Nitrogen) 16 mg/dL (8.4-25.7); Calc. Creatinine Clearance 127 mL/min (70-130); Calcium 9.6 mg/dL (7.8-10.44); Carbon Dioxide 19 mmol/L (22-29); Chloride 109 mmol/L (98-107); Estimated GFR 106; Glucose 95 mg/dL (70-105); Potassium 3.9 mmol/L (3.5-5.1); Sodium 137 mmol/L (136-145)
[2024-05-23 07:33] LABS: #Basophils 0.06 10x3/uL (0.0-0.2); %Basophils 0.9 % (0.0-1.0); %Lymphocytes 29.4 % (21.0-51.0); %Monocytes 9.1 % (0.0-10.0); %Neutrophils 58.3 % (42.0-75.0); Hematocrit 46.2 % (42.0-52.0); Hemoglobin 14.7 g/dL (14.0-18.0); Mean Corpuscular HGB CONC 31.8 g/dL (32.0-36.0); Mean Corpuscular Hemoglobin 29.3 pg (27.0-31.0); Platelet Count 229 10x3/uL (130-400); RBC Distribution Width 12.9 % (11.5-14.5); Red Blood Cell (RBC) Count 5.02 mill/uL (4.70-6.10)
[2024-05-23] MEDS: Vancomycin (BATCH) 1.5 GM in Premix 1 BAG IVPB SCH (08:39)
[2024-05-23 13:35] VITALS: BMI 27.3
[2024-05-24 07:01] LABS: #Basophils 0.04 10x3/uL (0.0-0.2); %Basophils 0.6 % (0.0-1.0); %Eosinophils 2.5 % (0.0-10.0); %Lymphocytes 29.8 % (21.0-51.0); %Monocytes 9.5 % (0.0-10.0); %Neutrophils 57.3 % (42.0-75.0); Hematocrit 42.7 % (42.0-52.0); Hemoglobin 14.1 g/dL (14.0-18.0); Mean Corpuscular Hemoglobin 29.3 pg (27.0-31.0); Mean Corpuscular Volume 88.8 fL (78.0-98.0); Platelet Count 262 10x3/uL (130-400); RBC Distribution Width 12.8 % (11.5-14.5); Red Blood Cell (RBC) Count 4.81 mill/uL (4.70-6.10)
[2024-05-24 07:48] LABS: Vancomycin, Random 19.8 ug/mL (See Comment)
[2024-05-24 07:51] LABS: Anion Gap 15 mmol/L (10-20); BUN (Urea Nitrogen) 20 mg/dL (8.4-25.7); Calc. Creatinine Clearance 122 mL/min (70-130); Calcium 9.7 mg/dL (7.8-10.44); Carbon Dioxide 21 mmol/L (22-29); Chloride 107 mmol/L (98-107); Estimated GFR 105; Glucose 103 mg/dL (70-105); Sodium 139 mmol/L (136-145)
[2024-05-24 15:47] VITALS: BP 138/84; TEMP 98
[2024-05-24] MEDS ORDERED: Linezolid 600 MG TAB PO SCH (21:00)
[2024-05-24] MEDS ORDERED: Apixaban 5 MG TAB PO SCH (21:00)
== END 2024-05-24 18:51 | disposition home or self-care (01) | DRG 872 ==
LOC: ERS 17:01 → SURG A 22:37 → OBSVTOIN 05-18 09:30
PROVIDERS: ADMIT Internal Medicine; ATTEND Internal Medicine
DX: A41.9 Sepsis, unspecified organism (principal); N39.0 Urinary tract infection, site not specified; I12.0 Hypertensive chronic kidney disease with stage 5 chronic kidney disease or end stage renal disease; I82.432 Acute embolism and thrombosis of left popliteal vein; K21.9 Gastro-esophageal reflux disease without esophagitis; K59.09 Other constipation; N31.9 Neuromuscular dysfunction of bladder, unspecified; D17.79 Benign lipomatous neoplasm of other sites; Z79.899 Other long term (current) drug therapy
CPT/HCPCS: 36415; 36416; 72156; 72157; 72158; 80048; 80053; 80202; 81001; 82550; 82607; 83605; 83880; 84207; 84425; 84443; 84484; 85025; 87040; 87077; 87086; 87186; 93005; 96365; 96372; 96374; 96375; 96376; G0378; J0696; J1650; J2060; J2250; J2405; J3370; J3490; J7050; J7507; J7512; J7518